=== PATIENT | male | born 1995 | race African-American/Black ===

== ENCOUNTER 2021-02-09 16:30 | Emergency (ER) | payer SELFPAY ==
[~2021-02-09] VITALS: Ht 177.8 cm; Wt 95.0 kg
[2021-02-09] MEDS ORDERED: LEVETIRACETAM 1000MG PREMIX 100 ML IV ONE (17:00)
[2021-02-09] MEDS ORDERED: KEPP500 MT (17:42)
[2021-02-09 17:49] LABS: BASOPHILS % 0.2 % (0.0-2.0); EOSINOPHILS % 0.1 % (0.0-5.0); HEMATOCRIT. 43.6 % (42.0-52.0); HEMOGLOBIN. 14.6 g/dL (14.0-18.0); LYMPHOCYTES % 11.1 % (20.0-50.0); MEAN CORPUSCULAR HEMOGLOBIN 26.7 pg (28.0-32.0); MEAN CORPUSCULAR VOLUME 79.8 fL (80.0-94.0); MONOCYTES % 7.1 % (2.0-8.0); NEUTROPHILS % 81.5 % (40.0-76.0); PLATELET 260 x1000/uL (130-400); RED BLOOD CELL COUNT 5.47 mill/uL (4.7-6.1)
[2021-02-09 17:55] LABS: CHLORIDE 109 mEq/L (98-107)
[2021-02-09 18:01] LABS: ETHANOL BLOOD < 10 mg/dL
[2021-02-09 18:57] VITALS: BP 123/69
== END 2021-02-09 19:11 | disposition home or self-care (01) ==
LOC: ER 16:30
DX: R56.9 Unspecified convulsions (principal); R51.9 Headache, unspecified; F12.10 Cannabis abuse, uncomplicated
CPT/HCPCS: 36415; 70450; 80053; 80320; 85025; 93005; 96365; 99285; J1953; G0480